=== PATIENT | male | born 1970 | race Caucasian/White ===

== ENCOUNTER → 2017-03-10 | Day surgery (SDC) | payer OTHER ==
[~2017-03-10] VITALS: Ht 185.4 cm; Wt 99.5 kg
[2017-03-10 07:37] LABS: HCT 45.3 % (42.0-52.0); HGB 16.1 g/dl (13.2-18.0); MCH 31.4 pg (25.0-31.0); MCHC 35.5 g/dL (32.0-36.0); MCV 88.5 fL (78.0-100.0); MPV 10.3 fL (6.0-9.5); RBC 5.12 M/uL (4.70-6.00); WBC 5.9 K/uL (4.0-10.5)
[2017-03-10 07:55] LABS: ALBUMIN 4.4 g/dL (3.5-5.0); CREATININE 0.9 mg/dL (0.7-1.2); GLOBULIN (CALCULATION) 2.5 g/dL (2.2-4.2); POTASSIUM 4.1 mmol/L (3.5-5.1); TOTAL PROTEIN 6.9 g/dL (6.4-8.3)
== END | disposition home or self-care (01) ==
LOC: FAS 07:48
PROVIDERS: Surgery
DX: Z12.11 Encounter for screening for malignant neoplasm of colon (principal); K29.50 Unspecified chronic gastritis without bleeding; Z79.899 Other long term (current) drug therapy; Z86.010 Personal history of colon polyps; K20.9 Esophagitis, unspecified; D12.3 Benign neoplasm of transverse colon
CPT/HCPCS: 36415; 80053; 88305; J2704

== ENCOUNTER → 2020-11-08 | Day surgery (SDC) | payer OTHER ==
[~2020-11-08] MED LIST: DAILY MULTIPLE1 EAC1 PO; PROBIOTIC1 EAC2 PO; VITAMIN B122500 MCG PO
[2020-11-08 10:18] LABS: HCT 50.4 % (42.0-52.0); HGB 17.2 g/dl (13.2-18.0); MCH 31.4 pg (25.0-31.0); MCHC 34.1 g/dL (32.0-36.0); MPV 10.4 fL (6.0-9.5); RBC 5.48 M/uL (4.70-6.00); RDW 12.8 % (11.5-14.0); WBC 10.2 K/uL (4.0-10.5)
[2020-11-08 10:42] LABS: ALBUMIN 4.1 g/dL (3.4-5.0); BILIRUBIN - TOTAL 0.9 mg/dL (0.2-1.0); BUN/CREAT RATIO (CALC) 13.5 RATIO; CREATININE 0.89 mg/dL (0.67-1.17); GLOBULIN (CALCULATION) 3.1 g/dL; TOTAL PROTEIN 7.2 g/dL (6.4-8.2)
== END | disposition home or self-care (01) ==
LOC: FAS 09:30
PROVIDERS: Surgery
DX: K31.9 Disease of stomach and duodenum, unspecified (principal); K21.00 Gastro-esophageal reflux disease with esophagitis, without bleeding; K29.70 Gastritis, unspecified, without bleeding; L91.8 Other hypertrophic disorders of the skin; Z20.822 Contact with and (suspected) exposure to COVID-19; Z85.828 Personal history of other malignant neoplasm of skin; Z86.010 Personal history of colon polyps; Z87.19 Personal history of other diseases of the digestive system
CPT/HCPCS: 36415; 80053; J2250; J2704; J7120; U0002